=== PATIENT | female | born 1990 | race Caucasian/White ===

== ENCOUNTER 2017-07-28 14:23 | Emergency (ER) | payer OTHER ==
[~2017-07-28] VITALS: Ht 162.6 cm; Wt 105.0 kg
[~2017-07-28 14:23] MED LIST: ALBUTEROL
[2017-07-28 14:41] VITALS: BP 125/79
[2017-07-28 16:41] LABS: COLOR URINE YELLOW (YELLOW); GLUCOSE URINE NEGATIVE (NEGATIVE); KETONES URINE NEGATIVE (NEGATIVE); LEUKOCYTE ESTERASE URINE NEGATIVE (NEGATIVE); NITRITE URINE NEGATIVE (NEGATIVE); OCCULT BLOOD URINE NEGATIVE (NEGATIVE); PROTEIN URINE NEGATIVE (NEGATIVE); SPECIFIC GRAVITY URINE 1.023 (1.005-1.030); UROBILINOGEN URINE 0.2 E.U./dL (0.2-1.0)
[2017-07-28 16:49] LABS: CLARITY URINE CLEAR (CLEAR)
== END 2017-07-28 19:30 | disposition left against medical advice (07) ==
LOC: ER 17:53
DX: O20.8 Other hemorrhage in early pregnancy (principal); O26.891 Other specified pregnancy related conditions, first trimester; R10.9 Unspecified abdominal pain; Z3A.01 Less than 8 weeks gestation of pregnancy
CPT/HCPCS: 81003; 87086

== ENCOUNTER 2017-11-20 21:03 | Emergency (ER) | payer OTHER ==
[~2017-11-20] VITALS: Ht 165.1 cm; Wt 103.0 kg
[2017-11-20 21:47] VITALS: BP 135/86
[2017-11-20 22:44] LABS: CLARITY URINE CLEAR (CLEAR); COLOR URINE YELLOW (YELLOW); KETONES URINE NEGATIVE (NEGATIVE); LEUKOCYTE ESTERASE URINE 1+ (NEGATIVE); NITRITE URINE NEGATIVE (NEGATIVE); OCCULT BLOOD URINE NEGATIVE (NEGATIVE); PROTEIN URINE NEGATIVE (NEGATIVE); UROBILINOGEN URINE 0.2 E.U./dL (0.2-1.0)
== END 2017-11-21 00:51 | disposition left against medical advice (07) ==
LOC: ER 21:03
DX: M54.9 Dorsalgia, unspecified (principal); R11.2 Nausea with vomiting, unspecified; R50.9 Fever, unspecified; Z53.21 Procedure and treatment not carried out due to patient leaving prior to being seen by health care provider
CPT/HCPCS: 81001; 81025

== ENCOUNTER 2018-08-30 06:54 | Emergency (ER) | payer OTHER ==
[~2018-08-30] VITALS: Ht 162.6 cm; Wt 104.0 kg
[2018-08-30] MEDS ORDERED: ACETAMINOPHEN 325MG TABLET PO PRN (08:30)
[2018-08-30 09:09] LABS: BASOPHILS % 0.3 % (0.0-2.0); EOSINOPHILS % 1.5 % (0.0-5.0); HEMOGLOBIN. 12.4 g/dL (12.0-16.0); LYMPHOCYTES % 21.4 % (20.0-50.0); MEAN CORPUSCULAR HEMOGLOBIN 28.3 pg (28.0-32.0); MEAN CORPUSCULAR VOLUME 84.4 fL (81.0-99.0); MEAN PLATELET VOLUME 7.9 fl (7.4-10.4); MONOCYTES % 8.8 % (2.0-8.0); PLATELET 224 x1000/uL (130-400); RED BLOOD CELL COUNT 4.38 mill/uL (4.2-5.4); RED CELL DISTRIBUTION WIDTH 14.3 % (11.6-14.6)
[2018-08-30 09:13] LABS: CHLORIDE 104 mEq/L (98-107)
[2018-08-30 09:31] LABS: PROTHROMBIN TIME 9.8 sec (9.1-11.1)
[2018-08-30 09:41] LABS: B-HCG QUANTITATIVE 42941 mIU/mL (<3)
[2018-08-30 09:45] LABS: CLARITY URINE CLEAR (CLEAR); COLOR URINE YELLOW (YELLOW); KETONES URINE NEGATIVE (NEGATIVE); LEUKOCYTE ESTERASE URINE NEGATIVE (NEGATIVE); NITRITE URINE NEGATIVE (NEGATIVE); OCCULT BLOOD URINE NEGATIVE (NEGATIVE); PH URINE 7.5 (4.5-8.0); PROTEIN URINE NEGATIVE (NEGATIVE); SPECIFIC GRAVITY URINE 1.019 (1.005-1.030); UROBILINOGEN URINE 0.2 E.U./dL (0.2-1.0)
[2018-08-30 11:00] VITALS: BP 115/74
== END 2018-08-30 11:25 | disposition home or self-care (01) ==
LOC: ER 07:16
DX: O20.0 Threatened abortion (principal); O99.511 Diseases of the respiratory system complicating pregnancy, first trimester; J45.909 Unspecified asthma, uncomplicated; Z91.040 Latex allergy status; Z3A.12 12 weeks gestation of pregnancy; Z98.890 Other specified postprocedural states
CPT/HCPCS: 36415; 76801; 76817; 80053; 81003; 81025; 83690; 84702; 85025; 85610; 86850; 86900; 86901; 99285; Z7610

== ENCOUNTER 2018-10-03 05:44 | Emergency (ER) | payer OTHER ==
[~2018-10-03] VITALS: Ht 162.6 cm; Wt 103.0 kg
[2018-10-03] MEDS ORDERED: ACETAMINOPHEN 325MG TABLET PO ONE (06:30)
[2018-10-03 06:59] LABS: BASOPHILS % 0.3 % (0.0-2.0); EOSINOPHILS % 1.1 % (0.0-5.0); HEMATOCRIT. 36.5 % (36.0-48.0); HEMOGLOBIN. 12.4 g/dL (12.0-16.0); MEAN CORPUSCULAR HEMOGLOBIN 28.6 pg (28.0-32.0); MEAN CORPUSCULAR VOLUME 84.3 fL (81.0-99.0); MEAN PLATELET VOLUME 7.8 fl (7.4-10.4); MONOCYTES % 7.6 % (2.0-8.0); PLATELET 227 x1000/uL (130-400); RED BLOOD CELL COUNT 4.33 mill/uL (4.2-5.4); RED CELL DISTRIBUTION WIDTH 13.9 % (11.6-14.6)
[2018-10-03 07:03] LABS: PROTHROMBIN TIME 9.8 sec (9.1-11.1)
[2018-10-03 07:06] LABS: CHLORIDE 107 mEq/L (98-107)
[2018-10-03 07:52] LABS: CLARITY URINE CLOUDY (CLEAR); COLOR URINE YELLOW (YELLOW); KETONES URINE TRACE (NEGATIVE); LEUKOCYTE ESTERASE URINE 2+ (NEGATIVE); NITRITE URINE POSITIVE (NEGATIVE); OCCULT BLOOD URINE 2+ (NEGATIVE); PH URINE 7.5 (4.5-8.0); PROTEIN URINE 2+ (NEGATIVE); SPECIFIC GRAVITY URINE 1.017 (1.005-1.030); UROBILINOGEN URINE 0.2 E.U./dL (0.2-1.0)
[2018-10-03 09:48] VITALS: BP 119/65
== END 2018-10-03 09:50 | disposition home or self-care (01) ==
LOC: ER 05:44
DX: O23.12 Infections of bladder in pregnancy, second trimester (principal); Z3A.16 16 weeks gestation of pregnancy; J45.909 Unspecified asthma, uncomplicated; Z98.890 Other specified postprocedural states; Z91.040 Latex allergy status
CPT/HCPCS: 36415; 81025; 99284

== ENCOUNTER 2018-11-16 10:11 | Observation (INO) | payer OTHER ==
[~2018-11-16] VITALS: Ht 160 cm; Wt 105.2 kg
[2018-11-16] MEDS ORDERED: PNV1TABL50 PO (10:39)
[2018-11-16 11:52] LABS: CLARITY URINE TURBID (CLEAR); COLOR URINE AMBER (YELLOW); KETONES URINE TRACE (NEGATIVE); LEUKOCYTE ESTERASE URINE 3+ (NEGATIVE); NITRITE URINE NEGATIVE (NEGATIVE); OCCULT BLOOD URINE 3+ (NEGATIVE); PROTEIN URINE 3+ (NEGATIVE); SPECIFIC GRAVITY URINE 1.029 (1.005-1.030); UROBILINOGEN URINE 0.2 E.U./dL (0.2-1.0)
[2018-11-16] MEDS ORDERED: CEFAZOLIN 2,000 MG in DEXT 5% WATER 100 ML IV SCH (12:45)
[2018-11-16] MEDS ORDERED: LACTATED RINGERS 1,000 ML IV ONE (12:45)
== END 2018-11-16 14:00 | disposition home or self-care (01) ==
LOC: 8 EST LDRP 10:11
PROVIDERS: ADMIT Obstetrics & Gynecology; ATTEND Obstetrics & Gynecology
DX: O26.892 Other specified pregnancy related conditions, second trimester (principal); N89.8 Other specified noninflammatory disorders of vagina; R30.0 Dysuria; N94.10 Unspecified dyspareunia; Z3A.22 22 weeks gestation of pregnancy
CPT/HCPCS: 81003; 87086; 96365; 99281; G0378; J0690; 96360; J7060

== ENCOUNTER 2018-11-27 00:02 | Observation (INO) | payer OTHER ==
[~2018-11-27] VITALS: Ht 162.6 cm; Wt 107.0 kg
[~2018-11-27 00:02] MED LIST changes: +PNV1TABL50 PO
== END 2018-11-27 01:05 | disposition home or self-care (01) ==
LOC: 8 EST LDRP 00:02
PROVIDERS: ADMIT Obstetrics & Gynecology; ATTEND Obstetrics & Gynecology
DX: O26.852 Spotting complicating pregnancy, second trimester (principal); Z3A.23 23 weeks gestation of pregnancy
CPT/HCPCS: 99281; G0378

== ENCOUNTER 2018-12-24 17:45 | Emergency (ER) | payer OTHER | END 2018-12-24 18:48 | disposition left against medical advice (07) | LOC: CANPREER → ER 17:45 | DX: R50.9 Fever, unspecified (principal); Z53.21 Procedure and treatment not carried out due to patient leaving prior to being seen by health care provider ==

== ENCOUNTER 2018-12-24 19:09 | Emergency (ER) | payer OTHER ==
[~2018-12-24] VITALS: Ht 162.6 cm; Wt 82.0 kg
[2018-12-24 19:13] VITALS: BP 114/73
== END 2018-12-24 21:28 | disposition left against medical advice (07) ==
LOC: ER 19:09
DX: Z53.21 Procedure and treatment not carried out due to patient leaving prior to being seen by health care provider (principal); F41.9 Anxiety disorder, unspecified; J45.909 Unspecified asthma, uncomplicated

== ENCOUNTER 2018-12-28 20:51 | Observation (INO) | payer OTHER ==
[~2018-12-28] VITALS: Ht 162.6 cm; Wt 104.3 kg
[2018-12-28] MEDS ORDERED: ACETAMINOPHEN 500MG TABLET PO NR (21:30)
[2018-12-28 22:01] LABS: CLARITY URINE CLOUDY (CLEAR); COLOR URINE YELLOW (YELLOW); KETONES URINE NEGATIVE (NEGATIVE); LEUKOCYTE ESTERASE URINE NEGATIVE (NEGATIVE); NITRITE URINE NEGATIVE (NEGATIVE); OCCULT BLOOD URINE NEGATIVE (NEGATIVE); PH URINE 7.5 (4.5-8.0); PROTEIN URINE NEGATIVE (NEGATIVE); SPECIFIC GRAVITY URINE 1.027 (1.005-1.030)
== END 2018-12-28 22:04 | disposition home or self-care (01) ==
LOC: 8 EST LDRP 20:51
PROVIDERS: ADMIT Obstetrics & Gynecology; ATTEND Obstetrics & Gynecology
DX: O26.893 Other specified pregnancy related conditions, third trimester (principal); R10.30 Lower abdominal pain, unspecified; R09.89 Other specified symptoms and signs involving the circulatory and respiratory systems; R51 Headache; M54.9 Dorsalgia, unspecified; Z3A.28 28 weeks gestation of pregnancy
CPT/HCPCS: 81003; 99281; G0378

== ENCOUNTER 2019-03-05 07:50 | Observation (INO) | payer OTHER ==
[~2019-03-05] VITALS: Ht 165.1 cm; Wt 112.5 kg
[2019-03-05] MEDS ORDERED: TERBUTALINE SULFATE 1MG/ML VIAL SUBCUT PRN (08:00)
[2019-03-05] MEDS ORDERED: LACTATED RINGERS 1,000 ML IV SCH (08:00)
[2019-03-05 08:36] LABS: INR 0.9; PARTIAL THROMBOPLASTIN TIME 28.7 sec (23.4-31.0); PROTHROMBIN TIME 9.5 sec (9.6-11.0)
[2019-03-05 08:45] LABS: BASOPHILS % 0.2 % (0.0-2.0); EOSINOPHILS % 0.5 % (0.0-5.0); HEMATOCRIT. 30.8 % (36.0-48.0); HEMOGLOBIN. 10.3 g/dL (12.0-16.0); LYMPHOCYTES % 15.5 % (20.0-50.0); MEAN CORPUSCULAR HEMOGLOBIN 26.2 pg (28.0-32.0); MEAN CORPUSCULAR VOLUME 78.6 fL (81.0-99.0); MONOCYTES % 9.3 % (2.0-8.0); NEUTROPHILS % 74.5 % (40.0-76.0); PLATELET 293 x1000/uL (130-400); RED BLOOD CELL COUNT 3.92 mill/uL (4.2-5.4)
[2019-03-05 08:50] LABS: CLARITY URINE CLOUDY (CLEAR); COLOR URINE YELLOW (YELLOW); KETONES URINE NEGATIVE (NEGATIVE); LEUKOCYTE ESTERASE URINE NEGATIVE (NEGATIVE); NITRITE URINE NEGATIVE (NEGATIVE); OCCULT BLOOD URINE 1+ (NEGATIVE); PROTEIN URINE NEGATIVE (NEGATIVE); UROBILINOGEN URINE 0.2 E.U./dL (0.2-1.0)
== END 2019-03-05 12:21 | disposition home or self-care (01) ==
LOC: 8 EST LDRP 07:50
PROVIDERS: ADMIT Obstetrics & Gynecology; ATTEND Obstetrics & Gynecology
DX: O62.9 Abnormality of forces of labor, unspecified (principal); Z3A.37 37 weeks gestation of pregnancy
CPT/HCPCS: 36415; 76805; 76818; 81003; 85025; 85610; 85730; 86592; 86850; 86900; 86901; 99281; G0378; 96360; 96361; 96372

== ENCOUNTER 2019-03-06 01:08 | Observation (INO) | payer OTHER ==
[~2019-03-06] VITALS: Ht 162.6 cm; Wt 112.5 kg
[2019-03-06] MEDS ORDERED: METHYLERGONOVINE MALEATE 0.2 MG/ML IM PRN (02:30)
[2019-03-06] MEDS ORDERED: NALOXONE HCL 0.4 MG/ML 1ML VIAL IM PRN (02:30)
[2019-03-06] MEDS ORDERED: BUTORPHANOL TARTRATE 2 MG/ML VIAL IV NR (02:45)
[2019-03-06] MEDS: LACTATED RINGERS 1,000 ML IV SCH ×3 (03:24→17:30)
[2019-03-06 03:28] LABS: BASOPHILS % 0.3 % (0.0-2.0); EOSINOPHILS % 0.3 % (0.0-5.0); HEMATOCRIT. 29.8 % (36.0-48.0); HEMOGLOBIN. 9.9 g/dL (12.0-16.0); MEAN CORPUSCULAR HEMOGLOBIN 26.2 pg (28.0-32.0); MEAN CORPUSCULAR VOLUME 78.8 fL (81.0-99.0); MEAN PLATELET VOLUME 8.2 fl (7.4-10.4); MONOCYTES % 10.5 % (2.0-8.0); NEUTROPHILS % 69.9 % (40.0-76.0); PLATELET 291 x1000/uL (130-400); RED BLOOD CELL COUNT 3.78 mill/uL (4.2-5.4); RED CELL DISTRIBUTION WIDTH 14.7 % (11.6-14.6)
[2019-03-06 03:33] LABS: INR 0.9; PARTIAL THROMBOPLASTIN TIME 26.8 sec (23.4-31.0); PROTHROMBIN TIME 9.5 sec (9.6-11.0)
[2019-03-06 04:41] LABS: HEPATITIS B SURFACE ANTIGEN NEGATIVE
[2019-03-06] MEDS ORDERED: DEXT 5%/LR + PITOCIN 20UNITS/L 1,000 ML IV SCH ×2 (06:00→14:00)
[2019-03-06] MEDS: BUTORPHANOL TARTRATE 2 MG/ML VIAL IV PRN ×2 (07:27→15:31)
[2019-03-06 08:22] LABS: CLARITY URINE CLOUDY (CLEAR); COLOR URINE YELLOW (YELLOW); KETONES URINE 3+ (NEGATIVE); LEUKOCYTE ESTERASE URINE NEGATIVE (NEGATIVE); NITRITE URINE NEGATIVE (NEGATIVE); OCCULT BLOOD URINE 2+ (NEGATIVE); PROTEIN URINE TRACE (NEGATIVE); SPECIFIC GRAVITY URINE 1.036 (1.005-1.030); UROBILINOGEN URINE 0.2 E.U./dL (0.2-1.0)
[2019-03-06 09:11] LABS: *AMPHETAMINES SCREEN URINE NEGATIVE (NEGATIVE); *BARBITURATES SCREEN URINE NEGATIVE (NEGATIVE); *BENZODIAZEPINES SCREEN URINE NEGATIVE (NEGATIVE); *COCAINE SCREEN URINE NEGATIVE (NEGATIVE); METHADONE URINE SCREEN NEGATIVE (NEGATIVE); OPIATES URINE SCREEN NEGATIVE (NEGATIVE)
[2019-03-06 09:12] LABS: CANNABINOID URINE SCREEN NEGATIVE (NEGATIVE); PHENCYCLIDINE URINE SCREEN NEGATIVE (NEGATIVE)
[2019-03-06] MEDS ORDERED: MORPHINE SULFATE/PF 1MG/ML 10ML AMP ONE (12:48)
[2019-03-06] MEDS ORDERED: PHENYLEPHRINE HCL 10 MG/ML 1ML (IV VIAL) IV ONE (12:50)
[2019-03-06] MEDS ORDERED: SODIUM CHLORIDE 0.9% 10ML VIAL ONE (12:50)
[2019-03-06] MEDS ORDERED: OXYTOCIN 10 UNITS/ML 1ML ONE (12:50)
[2019-03-06] MEDS ORDERED: ONDANSETRON HCL 4MG/2ML INJ ONE (12:52)
[2019-03-06] MEDS ORDERED: CEFAZOLIN SODIUM 1000MG/VIAL ONE (12:52)
[2019-03-06] MEDS ORDERED: METOCLOPRAMIDE HCL 10MG/2ML VIAL ONE (12:52)
[2019-03-06] MEDS ORDERED: DEXAMETHASONE 4MG/ML 1ML VIAL ONE (12:52)
[2019-03-06] MEDS ORDERED: CITRIC ACID/SODIUM CITRATE SOLN 30ML UDC PO NR (13:14)
[2019-03-06] MEDS ORDERED: HEMORRHOIDAL SUPP PR PRN (14:00)
[2019-03-06] MEDS ORDERED: HYDROCODONE/ACETAMINOPHEN 5/325MG TABLET PO PRN ×2 (14:00)
[2019-03-06] MEDS ORDERED: LANOLIN OINT 0.25 GM TUBE TOP PRN (14:00)
[2019-03-06] MEDS ORDERED: IBUPROFEN 400MG TABLET PO PRN (14:00)
[2019-03-06] MEDS ORDERED: ONDANSETRON HCL 4MG/2ML INJ IV PRN (14:00)
[2019-03-06] MEDS ORDERED: BISACODYL 10MG SUPP PR PRN (14:00)
[2019-03-06] MEDS ORDERED: DOCUSATE SODIUM 100MG CAPSULE PO SCH (21:00)
[2019-03-07] MEDS: LACTATED RINGERS 1,000 ML IV SCH ×2 (01:26→09:27)
[2019-03-07 06:51] LABS: BASOPHILS % 0.3 % (0.0-2.0); EOSINOPHILS % 1.4 % (0.0-5.0); HEMOGLOBIN. 9.8 g/dL (12.0-16.0); LYMPHOCYTES % 25.6 % (20.0-50.0); MEAN CORPUSCULAR HEMOGLOBIN 26.2 pg (28.0-32.0); MEAN CORPUSCULAR VOLUME 77.5 fL (81.0-99.0); MEAN PLATELET VOLUME 7.9 fl (7.4-10.4); NEUTROPHILS % 58.7 % (40.0-76.0); PLATELET 272 x1000/uL (130-400); RED BLOOD CELL COUNT 3.74 mill/uL (4.2-5.4); RED CELL DISTRIBUTION WIDTH 15.1 % (11.6-14.6)
[2019-03-07] MEDS ORDERED: PRENATAL VIT/FE FUMARATE/FA TABLET PO SCH (09:00)
[2019-03-07] MEDS ORDERED: FERROUS SULFATE 325MG TABLET PO SCH (09:00)
[2019-03-07 10:32] VITALS: BP 144/81
[2019-03-07] MEDS: BUTORPHANOL TARTRATE 2 MG/ML VIAL IV PRN (10:32)
== END 2019-03-07 13:00 | disposition home or self-care (01) ==
LOC: 8 EST LDRP 01:08
PROVIDERS: ADMIT Obstetrics & Gynecology; ATTEND Obstetrics & Gynecology
DX: O47.03 False labor before 37 completed weeks of gestation, third trimester (principal); O42.913 Preterm premature rupture of membranes, unspecified as to length of time between rupture and onset of labor, third trimester; Z3A.35 35 weeks gestation of pregnancy
CPT/HCPCS: 36415; 80305; 81003; 85025; 85610; 85730; 86592; 86703; 86762; 86850; 86900; 86901; 86920; 87340; 96374; 96376; 99281; G0378; J0595; J2274; J2405; J7120; J0690; J1100; J2370; J2765; A4315

== ENCOUNTER 2019-05-31 15:49 | Emergency (ER) | payer OTHER | END 2019-05-31 19:07 | disposition left against medical advice (07) | LOC: ER 15:49 | DX: R07.9 Chest pain, unspecified (principal); Z53.21 Procedure and treatment not carried out due to patient leaving prior to being seen by health care provider ==

== ENCOUNTER 2019-07-14 22:09 | Emergency (ER) | payer OTHER ==
[~2019-07-14] VITALS: Ht 165.1 cm; Wt 100.0 kg
[2019-07-15 00:01] VITALS: BP 126/87
== END 2019-07-15 | disposition home or self-care (01) ==
LOC: ER 22:09
DX: B34.9 Viral infection, unspecified (principal); Z91.040 Latex allergy status
CPT/HCPCS: 99281

== ENCOUNTER 2020-09-23 12:35 | Emergency (ER) | payer OTHER ==
[~2020-09-23] VITALS: Ht 160 cm; Wt 113.0 kg
[2020-09-23] MEDS ORDERED: ACETAMINOPHEN WITH CODEINE 300/30MG TABLET PO ONE (13:30)
[2020-09-23 15:00] VITALS: BP 166/100
[2020-09-23] MEDS ORDERED: KETOROLAC 30MG/ML VIAL IM ONE (15:00)
== END 2020-09-23 15:11 | disposition home or self-care (01) ==
LOC: ER 12:35
DX: K08.89 Other specified disorders of teeth and supporting structures (principal); Z91.040 Latex allergy status; Z98.890 Other specified postprocedural states
CPT/HCPCS: 81025; 96372; 99283; J1885